=== PATIENT | male | born 2000 | race Caucasian/White ===

== ENCOUNTER 2023-11-23 11:03 | Emergency (ER) | payer SELFPAY ==
[~2023-11-23] VITALS: Ht 185.4 cm; Wt 90.7 kg
[2023-11-23] MEDS ORDERED: SODIUM CHLORIDE 0.9% 1,000 ML IV ONE (11:20)
[2023-11-23] MEDS ORDERED: Tdap Vaccine 0.5 ML SYR (Adult Vaccine) IM ONE (11:20)
[2023-11-23] MEDS ORDERED: MORPHINE Sulfate 2 MG/ML SYR IV ONE ×3 (11:20→13:00)
[2023-11-23] MEDS ORDERED: ceFAZolin sodium/sodium chlor 10 ML IV ONE (11:25)
[2023-11-23] MEDS ORDERED: ceFAZolin sodium 1 GM VIAL ONE (11:34)
== END 2023-11-23 12:55 | disposition short-term general hospital (02) ==
LOC: ED 11:03
DX: S82.101B Unspecified fracture of upper end of right tibia, initial encounter for open fracture type I or II (principal); W29.3XXA Contact with powered garden and outdoor hand tools and machinery, initial encounter; Y93.89 Activity, other specified; Y92.89 Other specified places as the place of occurrence of the external cause; Y99.8 Other external cause status